=== PATIENT | male | born 1995 | race Caucasian/White ===

== ENCOUNTER 2018-02-21 17:59 | Emergency (ER) | payer MEDICAID ==
[~2018-02-21] VITALS: Ht 182.9 cm; Wt 127.6 kg
[2018-02-21 18:24] VITALS: BP 145/91; Ht 182.9 cm; Wt 127.6 kg
== END 2018-02-21 19:09 | disposition left against medical advice (07) ==
LOC: ED 17:59
DX: Z53.21 Procedure and treatment not carried out due to patient leaving prior to being seen by health care provider (principal)

== ENCOUNTER 2019-08-04 01:21 | Emergency (ER) | payer OTHER ==
[~2019-08-04] VITALS: Ht 182.9 cm; Wt 118.5 kg
[2019-08-04 01:25] VITALS: Ht 182.9 cm; Wt 118.5 kg
--- NOTE | 2019-08-04 01:35 | NUR ---
DR. FORDE WITH MSE AT BEDSIDE
--- NOTE | 2019-08-04 01:43 | NUR ---
PT. PRESENTS TO THE ER C/O MID EPIGASTRIC PAIN 10/10, THROBBING, N/V X 1 DAY, DIARRHEA X 2 DAYS, DENIES SOB, DENIES CHEST PAIN, DENIES URINARY SYMPTOMS, DENIES FEVER & CHILLS, PT. PLACED IN BED 8, AAOX4, CRYING, GUARDING ABDOMEN, REPOSITIONED FOR COMFORT, ESTABLISHED IV ACCESS, MOTHER AT BEDSIDE, SAFETY PRECAUTIONS IN PLACE, NEW ORDERS RECEIVED, VSS, WILL CONTINUE TO MONITOR,
--- NOTE | 2019-08-04 02:01 | NUR ---
X RAY AT BEDSIDE
--- NOTE | 2019-08-04 02:07 | NUR ---
MEDICATED PER DR. QUEEN, PT. TOLERATED WELL, SEE E[facility]
[2019-08-04 02:16] LABS: CALCIUM 8.7 mg/dL (8.5-10.1); CARBON DIOXIDE 31.4 mmol/L (21-32); CHLORIDE SERUM 102 mmol/L (98-107); CREATININE SERUM 0.9 mg/dL (0.7-1.3); GFR1 > 60 mL/min; GLUCOSE SERUM 111 mg/dL (74-106); POTASSIUM SERUM 4.3 mmol/L (3.5-5.1); SODIUM SERUM 141 mmol/L (136-145)
[2019-08-04 02:17] LABS: BASOPHIL % 1.1 % (0-2); PLATELET COUNT 347 x10^3mcL (130-400); RED CELL DISTRIBUTION WIDTH 13.9 % (11.5-14.5)
[2019-08-04 02:20] LABS: ALBUMIN 3.5 g/dL (3.4-5.0); ALKALINE PHOSPHATASE 124 U/L (46-116); ALT/SGPT 30 U/L (16-63); AMYLASE 43 U/L (25-115); AST/SGOT 43 U/L (15-37); BILIRUBIN TOTAL 0.28 mg/dL (0.20-1.00); LIPASE 84 IU/L (73-393); TOTAL PROTEIN, SERUM 7.1 g/dL (6.4-8.2)
--- NOTE | 2019-08-04 03:02 | NUR ---
US AT BEDSIDE, PT. STS 0/10 PAIN
--- NOTE | 2019-08-04 03:32 | NUR ---
PT. LAYING IN BED, AAOX4, NO ACUTE DISTRESS NOTED, 0/10 PAIN, STS "I AM FEELING BETTER." MADE AWARE, VSS, WILL CONTINUE TO MONITOR,
[2019-08-04 05:22] VITALS: BP 106/74
--- NOTE | 2019-08-04 05:22 | NUR ---
PER DR FORDE, PT CAN DC HOME.WENT OVER [facility]CI WITH PT.PT IN NAD. NO ASE FROM MEDS. INSTRUCTED TO F/U WITH PMD WITHIN 2-3 DAYS
== END 2019-08-04 05:22 | disposition home or self-care (01) ==
LOC: ED 01:21 → DU 02:24 → ED 02:24
PROVIDERS: Specialist
DX: R10.816 Epigastric abdominal tenderness (principal); R11.10 Vomiting, unspecified; Z90.89 Acquired absence of other organs
CPT/HCPCS: J1885; J2405; Q0092

== ENCOUNTER 2019-11-10 11:20 | Emergency (ER) | payer OTHER ==
[~2019-11-10] VITALS: Ht 182.9 cm; Wt 121.1 kg
[2019-11-10 11:37] VITALS: Ht 182.9 cm; Wt 121.1 kg
[2019-11-10 13:32] VITALS: BP 150/65
== END 2019-11-10 13:32 | disposition home or self-care (01) ==
LOC: ED 11:20
DX: Z04.1 Encounter for examination and observation following transport accident (principal); Z90.89 Acquired absence of other organs

== ENCOUNTER 2020-09-14 07:00 | Emergency (ER) | payer OTHER ==
[~2020-09-14] VITALS: Ht 182.9 cm; Wt 113.4 kg
[2020-09-14 07:18] VITALS: Ht 182.9 cm; Wt 113.4 kg
[2020-09-14 10:45] LABS: BASOPHIL % 0.5 % (0.2-1.5); PLATELET COUNT 309 x10^3mcL (152-348); RED CELL DISTRIBUTION WIDTH 12.8 % (12.1-16.2)
[2020-09-14 11:18] LABS: CALCIUM 9.1 mg/dL (8.5-10.1); CARBON DIOXIDE 29.2 mmol/L (21-32); CHLORIDE SERUM 102 mmol/L (98-107); GFR1 > 60 mL/min; GLUCOSE SERUM 119 mg/dL (74-106); POTASSIUM SERUM 4.1 mmol/L (3.5-5.1); SODIUM SERUM 137 mmol/L (136-145)
[2020-09-14 11:23] LABS: ALKALINE PHOSPHATASE 93 U/L (46-116); ALT/SGPT 56 U/L (16-63); AST/SGOT 33 U/L (15-37); LIPASE 60 IU/L (73-393); TOTAL PROTEIN, SERUM 8.1 g/dL (6.4-8.2)
[2020-09-14 13:00] VITALS: BP 123/61
[2020-09-14 13:47] LABS: rbc morphology (normal/abnorm) NORMAL (NORMAL)
== END 2020-09-14 13:00 | disposition home or self-care (01) ==
LOC: ED 07:00
PROVIDERS: Emergency Medicine
DX: K80.20 Calculus of gallbladder without cholecystitis without obstruction (principal); Z98.890 Other specified postprocedural states
CPT/HCPCS: Q0162